=== PATIENT | male | born 1990 | race Hispanic/Latino ===

== ENCOUNTER 2018-08-25 09:04 | Emergency (ER) | payer SELFPAY ==
[2018-08-25 09:07] VITALS: BP 111/73; PULSE 63; RESP 17; TEMP 36.9; O2SAT 97; BMI 21.4
--- NOTE | 2018-08-25 09:19 | US_ITS ---
STUDY: ABDOMINAL ULTRASOUND - RIGHT UPPER QUADRANT REASON FOR VISIT: Male, 28 years old. Right upper quadrant pain. TECHNIQUE: Ultrasound evaluation of the right upper quadrant was performed with real-time and static kc-scale imaging. TECHNICAL QUALITY: Adequate. COMPARISON: None. FINDINGS: Liver: The liver measures 13.9 cm. There is normal echogenicity of the liver. The bile ducts are within normal limits. There is hepatic color flow. The direction of portal flow is hepatopetal. There is no demonstrated mass lesion. Gallbladder: Normal distended gallbladder. The gallbladder wall measures 2.8 mm. There is a negative sonographic Funes's sign. There is no pericholecystic fluid. There are no gallstones. Common Bile Duct (C.B.D.): The common bile duct measures 3.7 mm. Pancreas: Normal size of the head, body and tail of the pancreas. There is normal echogenicity of the pancreas. There is no demonstrated pancreatic mass or cyst. Right Kidney: Normal size of the right kidney. The right kidney measures 10 cm x 5.1 cm x 6.1 cm. Normal renal cortex. The right cortex measures 1.5 cm. There is no demonstrated renal mass or cyst. There is no right hydronephrosis. US/Gallbladder IMPRESSION: Normal right upper quadrant ultrasound examination. Electronically Signed: Kareem Arriaza, at 10:52 EDT , Service support ,
--- NOTE | 2018-08-25 09:20 | ED.DCSUM_ITS ---
- ER Visit Summary Date of Service: 08/25/18 Chief Complaint: Right upper quadrant abdominal pain History of Present Illness: The patient is a 28 M M past medical or surgical history. Currently on no medication and does not have a physician. speaking but has a gentleman with him that we will interpret and speaks good Maldivian and Lithuanian. For several weeks of the 2 months of pains and intermittent left upper quadrant abdominal pain sometimes brought on by food. Associated nausea but no vomiting. No diarrhea or fever. No dysuria. No recent abdominal trauma. No prior abdominal surgeries. Patient denies any back pain. No fever. Physical Examination: Young male no acute distress. Vital signs are stable and afebrile. HEENT exam normal. Neck nontender no lymphadenopathy. Lungs clear to auscultation bilaterally. Heart regular rate and rhythm no murmur. Abdomen is soft. Mild tenderness in the right upper quadrant. No rebound, guarding or rigidity. No hernia or masses. No Funes sign. No McBurney's point tenderness or right upper quadrant tenderness. No distention. Patient moving all 4 extremities. Neurovascular intact. Back is nontender. Neurologically there is no focal motor deficit. Test Results: CBC normal. White count of 4. Hemoglobin 14. Chemistries normal normal creatinine gap. Liver and lipase normal. Ultrasound right upper quadrant read as normal by the radiologist. No fluid, no stones and no Funes s ign. Emergency Department Course and Treatment: Patient with intermittent right upper quadrant abdominal pain for weeks to up to 2 months. Screening labs and a right upper quadrant ultrasound be obtained. Repeat exam at 11:10 AM the patient is doing well. Abdomen is benign. I discussed all test results with he and his friend at bedside. There is no M cBurney's point tenderness. His work-up is negative am comfortable him being discharged to home with outpatient follow-up. Treatment Plan: Tylenol and/or Motrin for pain. Follow-up with a local primary care physician. Disposition: Discharge Impression: Acute right sided abdominal pain of uncertain etiology This note was generated with [employer] software. It may contain incorrect words, spelling, and punctuation that were not noted in review of the chart prior to signing ED Disposition - Plan for ED Patient: Referrals: Care Physician,No Primary [Primary Care Provider] -
[2018-08-25 09:50] LABS: Absolute Neutrophil Count 2.6 X10^3/uL (2.0-7.7); Basophil# 0.03 X10^3/uL; Basophil% 0.6 % (0-1); Eosinophil# 0.13 X10^3/uL; Eosinophils% 2.7 % (0-5); Hematocrit 42.9 % (40-54); Hemoglobin 14.6 g/dL (13.0-16.5); Lymphocyte % 35.6 % (19-41); Mean Corpuscular Hgb 30.2 pg (27.0-32.0); Mean Corpuscular Volume 88.8 fL (80-94); Mean Platelet Vol. 9.9 fl (6.2-12.0); Monocyte% 6.3 % (0-10); NRBC Flagged by Analyzer 0 % (0-5); Neutrophil # 2.61 X10^3/uL (2.7-7.7); Neutrophil % 54.6 % (47-70); Platelet Count 227 K/mm3 (150-450); RBC Distribution Width CV 12.3 % (11.6-14.6); RBC Distribution Width SD 40.1 fl (35.1-43.9); Red Blood Count 4.83 M/mm3 (4.6-6.2); White Blood Count 4.8 K/mm3 (4.4-11.0)
[2018-08-25 10:03] LABS: AST(SGOT) 20 U/L (15-37); Alanine Aminotransfer ALT/SGPT 39 U/L (16-61); Albumin, Serum 3.7 g/dL (3.2-5.0); Alkaline Phosphatase 95 U/L (45-117); Anion Gap 5 (5-15); BUN 15 mg/dL (7-18); BUN/Creat Ratio 12.7 RATIO (10-20); Calcium,Total 8.9 mg/dL (8.5-10.1); Chloride 109 mmol/L (98-107); Creatinine, Serum 1.18 mg/dL (0.70-1.30); EST Glomerular Filtration Rate 79 mL/min (>60); Est Glom Filt Rate - Afr Amer 96 mL/min (>60); Globulin 3.3 g/dL (2.2-4.2); Glucose 110 mg/dL (74-106); Lipase 145 U/L (73-393); Potassium 3.9 mmol/L (3.5-5.1); Sodium Level 140 mmol/L (136-145)
[2018-08-25 11:07] VITALS: BP 110/69; PULSE 56; RESP 16; O2SAT 100
--- NOTE | 2018-08-25 11:12 | ED.DEP ---
ED Disposition - Plan for ED Patient: Disposition: [facility] or Unit Instructions: ABDOMINAL PAIN, Unkown Cause, (Male) Referrals: Abraham Hendrickson MD [STAFF PHYSICIAN] - 3-5 Days if not improving Additional Instructions: All your blood work and labs along with your ultrasound were normal. Tylenol and Motrin for pain. Follow-up with a local primary care physician for further evaluation.
[2018-08-25 11:23] VITALS: BP 110/69; PULSE 56; RESP 16; O2SAT 100
== END 2018-08-25 11:24 | disposition home or self-care (01) ==
PROVIDERS: Emergency Provider Emergency Medicine
DX: R10.11 Right upper quadrant pain (principal); R11.0 Nausea
CPT/HCPCS: 76705; 80048; 80076; 83690; 85025; 99283; A4216